=== PATIENT | male | born 1985 | race Caucasian/White ===

== ENCOUNTER 2016-12-29 10:37 | Emergency (ER) | payer OTHER ==
[~2016-12-29] VITALS: Ht 162.6 cm; Wt 63.5 kg
[2016-12-29 10:42] VITALS: BP 118/65
[2016-12-29] MEDS ORDERED: CEPHALEXIN MONOHYDRATE 500 MG CAPSULE PO ONE (11:00)
== END 2016-12-29 11:00 | disposition home or self-care (01) ==
LOC: ER 10:42
DX: L03.012 Cellulitis of left finger (principal); L60.0 Ingrowing nail
CPT/HCPCS: 99283; A4606; Z7610

== ENCOUNTER 2022-08-29 13:55 | Emergency (ER) | payer MEDICAID, OTHER ==
[~2022-08-29] VITALS: Ht 154.9 cm; Wt 63.5 kg
[2022-08-29 14:10] VITALS: BP 113/76
--- NOTE | 2022-08-29 17:05 | NUR ---
Patient discharged to home in stable condition. Written and verbal after care instructions given. Patient verbalizes understanding of instruction.
== END 2022-08-29 17:05 | disposition home or self-care (01) ==
LOC: ER 13:56
DX: R46.0 Very low level of personal hygiene (principal)